=== PATIENT | female | born 1990 | race Two or more races ===

== ENCOUNTER 2019-02-17 12:50 | Emergency (ER) | payer MEDICAID ==
[~2019-02-17] VITALS: Ht 160 cm; Wt 65.0 kg
[2019-02-17] MEDS ORDERED: IBUPROFEN 600MG TABLET PO ONE (16:45)
[2019-02-17 18:00] VITALS: BP 118/62
== END 2019-02-17 18:02 | disposition home or self-care (01) ==
LOC: ER 12:50
DX: S93.402A Sprain of unspecified ligament of left ankle, initial encounter (principal); X50.1XXA Overexertion from prolonged static or awkward postures, initial encounter; Y93.89 Activity, other specified; Y92.89 Other specified places as the place of occurrence of the external cause
CPT/HCPCS: 73610; 99283